=== PATIENT | female | born 1990 ===

== ENCOUNTER → 2018-02-20 14:00 | Outpatient (CLI) | payer OTHER, SELFPAY | DX: Z23 Encounter for immunization (principal) | CPT/HCPCS: 90471; 90686 ==

== ENCOUNTER → 2021-11-15 09:22 | Outpatient (CLI) | payer OTHER, SELFPAY ==
--- NOTE | 2021-11-15 09:26 | DI.RAD.S_ITS ---
PROCEDURE: XR CERVICAL SPINE 4V OR 5V INDICATIONS: NECK PAIN TECHNIQUE: Five views of the cervical spine acquired. COMPARISON: None. FINDINGS: Bones: No fractures or dislocations to the T1 level. Reversal of the normal cervical lordosis. No suspicious subluxation. Oblique images demonstrate no bony foraminal stenoses. Soft tissues: No prevertebral soft tissue swelling. IMPRESSION: 1. Reversal of the normal cervical lordosis may be secondary to muscle spasm or strain. Next 2. Otherwise normal cervical spine. Dictated by: Jaja Key M.D. on 11/15/2021 at 12:42 Approved by: Jaja Key M.D. on 11/15/2021 at 12:43
--- NOTE | 2021-11-15 09:26 | DI.RAD.S_ITS ---
PROCEDURE: XR LUMBAR SPINE MIN 4V INDICATIONS: BACK AND HIP PAIN TECHNIQUE: 5 views of the lumbar spine were acquired, including bilateral oblique views. COMPARISON: None. FINDINGS: Bones: 5 nonrib-bearing vertebrae are present. There is normal bony alignment. No vertebral body compression fractures. No suspicious bony lesions. Soft tissues: Overlying bowel gas pattern is normal. No suspicious soft tissue calcifications. Oblique images: No pars defects. IMPRESSION: No osseous lesion. If symptoms and/or clinical suspicion for pathology persists, evaluation with MRI should be considered for further assessment. Dictated by: Shakira Hanna MD, PhD on 11/15/2021 at 14:26 Approved by: Shakira Hanna MD, PhD on 11/15/2021 at 14:27
== END ==
PROVIDERS: PCP Internal Medicine; Referring Provider Physical Medicine & Rehabilitation; Visit Provider Physical Medicine & Rehabilitation
DX: M54.2 Cervicalgia (principal); M25.559 Pain in unspecified hip; M54.9 Dorsalgia, unspecified
CPT/HCPCS: 72050; 72110